=== PATIENT | female | born 2005 | race Caucasian/White ===

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

== ENCOUNTER 2024-06-24 21:36 | Emergency (ER) | payer BC ==
--- NOTE | 2024-06-24 21:52 | ED ---
Abdominal Pain HPI <Radha Ireland - Last Filed: 06/24/24 21:50> <Ale Chapman - Last Filed: 06/25/24 03:12> - General Stated Complaint: R Side Abd Pain Time Seen by Provider: 06/24/24 21:50 - History of Present Illness Initial Comments: Quick -83-ungp- female presenting for right lower quadrant abdominal pain x 2 hours. States the pain began suddenly and describes pain as though she is being stabbed with a knife. States the pain does radiate into the right flank. The pain did begin after a meal. She has never had this pain before. Denies fever, chills, vomiting, or urinary symptoms. Denies history of abdominal surgeries. (Radha Ireland) 18-year-old female with chief complaint of right lower quadrant pain. Pain started about 2 hours ago. Pain began suddenly and is a sharp and stabbing pain. Pain was somewhat radiating to the buttock earlier. She denies any dysuria or hematuria. No fevers or chills. No vaginal bleeding or abnormal discharge. No nausea or vomiting. No history of abdominal surgeries. (Ale Chapman) - Related Data Previous Rx's Medication Instructions Recorded traMADol HCl [Ultram] 50 mg PO Q4HR PRN 3 Days #18 tab 12/24/22 Ketorolac [Toradol] 10 mg PO Q6HR PRN #12 tab 06/25/24 Allergies Allergy/AdvReac Type Severity Reaction Status Date / Time No Known Allergies Allergy Verified 12/24/22 07:39 Review of Systems ROS Other: All systems not noted in ROS Statement are negative. <Radha Ireland - Last Filed: 06/24/24 21:50> ROS Other: All systems not noted in ROS Statement are negative. <Ale Chapman - Last Filed: 06/25/24 03:12> ROS Statement: Those systems with pertinent positive or pertinent negative responses have been documented in the HPI. Past Medical History Additional Past Medical History / Comment(s): bulging discs L4-L5 Past Surgical History: Adenoidectomy, Tonsillectomy Additional Past Surgical History / Comment(s): [place] teeth removed, laminectomy/decompression L4-L5 12/24/22 - Past Family History Mother Family Medical History: Hyperlipidemia, Hypertension Additional Family Medical History / Comment(s): bulging discs/back surgery, bipolar <Radha Ireland - Last Filed: 06/24/24 21:50> General Exam <Radha Ireland - Last Filed: 06/24/24 21:50> Limitations: no limitations General appearance: alert, in no apparent distress Head exam: Present: atraumatic, normocephalic, normal inspection Eye exam: Present: normal appearance, EOMI Neck exam: Present: normal inspection. Absent: meningismus Respiratory exam: Present: normal lung sounds bilaterally. Absent: respiratory distress, wheezes, rales, rhonchi, stridor Cardiovascular Exam: Present: regular rate, normal rhythm, normal heart sounds. Absent: systolic murmur, diastolic murmur, rubs, gallop, clicks GI/Abdominal exam: Present: soft, tenderness (rlq). Absent: distended, guarding, rebound, rigid Neurological exam: Present: alert, oriented X3 Psychiatric exam: Present: normal affect, normal mood Skin exam: Present: warm, dry <Ale Chapman - Last Filed: 06/25/24 03:12> - General Exam Comments Initial Comments: Visual Physical Exam General: Well-appearing, nontoxic, no acute distress. Head: Normocephalic, atraumatic Eyes: PERRLA, EOMI ENT: Airway patent Chest: Nonlabored breathing Skin: No visual rash, normal skin tone Neuro: Alert and oriented 3 Musculoskeletal: No gross abnormalities (Radha Ireland) Course Vital Signs 06/24/24 21:52 Temperature 98.3 F Pulse Rate 87 Respiratory 17 Rate Blood Pressure 138/81 O2 Sat by Pulse 99 Oximetry Medical Decision Making <Radha Ireland - Last Filed: 06/24/24 21:50> - Lab Data Result diagrams: 06/24/24 22:29 06/24/24 22:29 <Ale Chapman - Last Filed: 06/25/24 03:12> - Medical Decision Making I completed the quick note portion of this chart signed to Radha Ireland PA-C (Radha Ireland) Was pt. sent in by a medical professional or institution (, PA, WOOD DRILLING MACHINE OPERATOR, urgent care, hospital, or skilled nursing...) When possible be specific @ -No Did you speak to anyone other than the patient for history (EMS, parent, family, police, friend...)? What history was obtained from this source @ -No Did you review nursing and triage notes (agree or disagree)? Why? @ -I reviewed and agree with nursing and triage notes Were old charts reviewed (outside hosp., previous admission, EMS record, old EKG, old radiological studies, urgent care reports/EKG's, skilled nursing records)? Report findings @ -No old charts were reviewed Differential Diagnosis (chest pain, altered mental status, abdominal pain women, abdominal pain men, vaginal bleeding, weakness, fever, dyspnea, syncope, hea dache, dizziness, GI bleed, back pain, seizure, CVA, palpatations, mental health, musculoskeletal)? @ -MDM Differential Abdominal Pain Women: Appendicitis, Cholecystitis, diverticulosis, ischemic bowel, pancreatitis, hepatitis, UTI, gastroenteritis, AAA, incarcerated hernia, bowel obstruction, constipation, inflammatory bowel, hepatitis, peptic ulcer disease, splenic infarction, perforated viscus, vulvitis, ovarian torsion, PID, kidney stone, placenta abruption... This is not meant to be an all-inclusive list EKG interpreted by me (3pts min.). @ -As above X-rays interpreted by me (1pt min.). @ -None done CT interpreted by me (1pt min.). @ -CT shows no evidence for acute appendicitis. No suspicious acute finding seen to account for patient's symptoms. U/S interpreted by me (1pt. min.). @ -Appendix ultrasound shows nonvisualized normal or abnormal appendix Transvaginal ultrasound is unremarkable What testing was considered but not performed or refused? (CT, X-rays, U/S, labs)? Why? @ -None What meds were considered but not given or refused? Why? @ -None Did you discuss the management of the patient with other professionals (professionals i.e. , PA, WOOD DRILLING MACHINE OPERATOR, lab, RT, psych nurse, socially responsible investment adviser, spot checker, teacher, environmental compliance officer, complex case manager)? Give summary @ -No Was smoking cessation discussed for >3mins.? @ -No Was critical care preformed (if so, how long)? @ -No Were there social determinants of health that impacted care today? How? (Homelessness, low income, unemployed, alcoholism, drug addiction, transportation, low edu. Level, literacy, decrease access to med. care, intermediate, rehab)? @ -No Was there de-escalation of care discussed even if they declined (Discuss DNR or withdrawal of care, Hospice)? DNR status @ -No What co-morbidities impacted this encounter? (DM, HTN, Smoking, COPD, CAD, Cancer, CVA, ARF, Chemo, Hep., AIDS, mental health diagnosis, sleep apnea, morbid obesity)? @ -None Was patient admitted / discharged? Hospital course, mention meds given and route, prescriptions, significant lab abnormalities, going to OR and other pertinent info. @ -18-year-old female presenting with chief complaint of right lower quadrant pain that started earlier today. Workup was initiated by triage. No leukocytosis or anemia. CMP requires no action and urine shows no infectious process or bleeding. Negative hCG. Appendix ultrasound was obtained which does not visualize the appendix well. CT shows no acute process. Patient was having continued pain and ultrasound was obtained to rule out ovarian torsion, unremarkable transvaginal ultrasound. Patient reports improvement in her pain after morphine and Toradol. She is educated on today's findings and treatment plan. Discharged. Follow-up with PCP. Report back to ER with any new or worsening symptoms. Discussed return parameters and answered all questions. Patient conveyed verbal understanding and agreed to the plan. I discussed this case in detail with my attending Dr. David Undiagnosed new problem with uncertain prognosis? @ -No Drug Therapy requiring intensive monitoring for toxicity (Heparin, Nitro, Insulin, Cardizem)? @ -No Were any procedures done? @ -No Diagnosis/symptom? @ -Abdominal pain Acute, or Chronic, or Acute on Chronic? @ -Acute Uncomplicated (without systemic symptoms) or Complicated (systemic symptoms)? @ -Uncomplicated Side effects of treatment? @ -No Exacerbation, Progression, or Severe Exacerbation? @ -No Poses a threat to life or bodily function? How? (Chest pain, [place], [place], pneumonia, PE, COPD, DKA, ARF, appy, cholecystitis, CVA, Diverticulitis, Homicidal, Suicidal, threat to staff... and all critical care pts) @ -Unlikely (Ale Chapman) - Lab Data Lab Results 06/24/24 06/24/24 06/24/24 Range/Units 21:56 21:56 22:29 WBC 9.0 (4.0-11.0) k/uL RBC 4.60 (3.80-5.40) m/uL Hgb 13.9 (11.4-16.0) gm/dL Hct 42.1 (34.0-46.0) % MCV 91.5 (80.0-100.0) fL MCH 30.2 (25.0-35.0) pg MCHC 33.0 (31.0-37.0) g/dL RDW 12.2 (11.5-15.5) % Plt Count 308 (150-450) k/uL MPV 8.2 Neutrophils % 47 % Lymphocytes % 43 % Monocytes % 6 % Eosinophils % 2 % Basophils % 1 % Neutrophils # 4.2 (1.3-7.7) k/uL Lymphocytes # 3.8 (1.0-4.8) k/uL Monocytes # 0.5 (0-1.0) k/uL Eosinophils # 0.2 (0-0.7) k/uL Basophils # 0.1 (0-0.2) k/uL Sodium (137-145) mmol/L Potassium (3.5-5.1) mmol/L Chloride (98-107) mmol/L Carbon Dioxide (22-30) mmol/L Anion Gap mmol/L BUN (7-17) mg/dL Creatinine (0.52-1.04) mg/dL Est GFR (CKD-EPI)AfAm (>60 ml/min/1.73 sqM) Est GFR (CKD-EPI)NonAf (>60 ml/min/1.73 sqM) Glucose (74-99) mg/dL Plasma Lactic Acid Long (0.7-2.0) mmol/L Calcium (8.4-10.2) mg/dL Total Bilirubin (0.2-1.3) mg/dL AST (14-36) U/L ALT (4-34) U/L Alkaline Phosphatase (38-126) U/L Total Protein (6.3-8.2) g/dL Albumin (3.5-5.0) g/dL Urine Color Colorless Urine Appearance Clear (Clear) Urine pH 6.0 (5.0-8.0) Ur Specific [place] 1.018 (1.001-1.035) Urine Protein Negative (Negative) Urine Glucose (UA) Negative (Negative) Urine Ketones Negative (Negative) Urine Blood Negative (Negative) Urine Nitrite Negative (Negative) Urine Bilirubin Negative (Negative) Urine Urobilinogen <2.0 (<2.0) mg/dL Ur Leukocyte Esterase Negative (Negative) Urine HCG, Qual Not Detected (Not Detectd) 06/24/24 06/24/24 Range/Units 22:29 22:29 WBC (4.0-11.0) k/uL RBC (3.80-5.40) m/uL Hgb (11.4-16.0) gm/dL Hct (34.0-46.0) % MCV (80.0-100.0) fL MCH (25.0-35.0) pg MCHC (31.0-37.0) g/dL RDW (11.5-15.5) % Plt Count (150-450) k/uL MPV Neutrophils % % Lymphocytes % % Monocytes % % Eosinophils % % Basophils % % Neutrophils # (1.3-7.7) k/uL Lymphocytes # (1.0-4.8) k/uL Monocytes # (0-1.0) k/uL Eosinophils # (0-0.7) k/uL Basophils # (0-0.2) k/uL Sodium 140 (137-145) mmol/L Potassium 3.8 (3.5-5.1) mmol/L Chloride 108 H (98-107) mmol/L Carbon Dioxide 24 (22-30) mmol/L Anion Gap 8 mmol/L BUN 10 (7-17) mg/dL Creatinine 0.59 (0.52-1.04) mg/dL Est GFR (CKD-EPI)AfAm >90 (>60 ml/min/1.73 sqM) Est GFR (CKD-EPI)NonAf >90 (>60 ml/min/1.73 sqM) Glucose 123 H (74-99) mg/dL Plasma Lactic Acid Long 0.9 (0.7-2.0) mmol/L Calcium 9.5 (8.4-10.2) mg/dL Total Bilirubin 0.5 (0.2-1.3) mg/dL AST 26 (14-36) U/L ALT 18 (4-34) U/L Alkaline Phosphatase 52 (38-126) U/L Total Protein 7.1 (6.3-8.2) g/dL Albumin 4.5 (3.5-5.0) g/dL Urine Color Urine Appearance (Clear) Urine pH (5.0-8.0) Ur Specific [place] (1.001-1.035) Urine Protein (Negative) Urine Glucose (UA) (Negative) Urine Ketones (Negative) Urine Blood (Negative) Urine Nitrite (Negative) Urine Bilirubin (Negative) Urine Urobilinogen (<2.0) mg/dL Ur Leukocyte Esterase (Negative) Urine HCG, Qual (Not Detectd) Disposition <Radha Ireland - Last Filed: 06/24/24 21:50> Is patient prescribed a controlled substance at d/c from ED?: No Time of Disposition: 02:38 <Ale Chapman - Last Filed: 06/25/24 03:12> Clinical Impression: Abdominal pain Disposition: HOME SELF-CARE Condition: Good Instructions (If sedation given, give patient instructions): Abdominal Pain (ED) Additional Instructions: Follow-up with your PCP. Report back to ER with any new or worsening symptoms. Do not combine Toradol with other NSAIDs such as ibuprofen or naproxen. Prescriptions: Ketorolac [Toradol] 10 mg PO Q6HR PRN #12 tab PRN Reason: Pain Referrals: Laura Olvera PAC [REFERRING] - 1-2 days
[2024-06-24 21:55] VITALS: TEMP 98.3
--- NOTE | 2024-06-24 22:56 | US ---
EXAMINATION TYPE: US abdomen APPY DATE OF EXAM: 06/24/2024 COMPARISON: NONE CLINICAL INDICATION: Female, 18 years old with history of RLQ abd pain; RLQ pain TECHNIQUE: Multiple sonographic images of the right lower quadrant were obtained with graded compress ion with grayscale and color Doppler imaging. FINDINGS: APPENDIX Is the appendix seen in its entirety from the proximal cecum to distal end: no Is the appendix compressible: n/a Does the appendix wall appear hypervascular: no Is an appendicolith present: no Is there inflammatory changes or free fluid present: no SPECIAL EVENTS DIRECTOR NOTES: Appendix is not well visualized due to bowel gas. IMPRESSION: Nonvisualized normal or abnormal appendix. [facility], , 06/24/2024 10:54 PM
[2024-06-24 23:16] LABS: Basophils # (A) 0.1 k/uL (0-0.2); Basophils % (A) 1 %; Eosinophils # (A) 0.2 k/uL (0-0.7); Eosinophils % (A) 2 %; HCT 42.1 % (34.0-46.0); HGB 13.9 gm/dL (11.4-16.0); Lymphocytes # (A) 3.8 k/uL (1.0-4.8); Lymphocytes % (A) 43 %; MCH 30.2 pg (25.0-35.0); MCV 91.5 fL (80.0-100.0); Mean Platelet Volume 8.2; Monocytes # (A) 0.5 k/uL (0-1.0); Monocytes % (A) 6 %; Neutrophils # (A) 4.2 k/uL (1.3-7.7); Neutrophils % (A) 47 %; Platelet Count 308 k/uL (150-450); RDW 12.2 % (11.5-15.5)
[2024-06-24 23:19] LABS: Appearance,Urine Clear (Clear); Bilirubin,Urine Negative (Negative); Blood,Urine Negative (Negative); Color,Urine Colorless; Glucose,Urine (UA) Negative (Negative); Ketones,Urine Negative (Negative); Leukocyte Esterase,Urine Negative (Negative); Nitrite,Urine Negative (Negative); Protein,Urine Negative (Negative); Specific Gravity,Urine 1.018 (1.001-1.035); Urobilinogen,Urine <2.0 mg/dL (<2.0)
[2024-06-24 23:34] LABS: ALT 18 U/L (4-34); AST 26 U/L (14-36); African American GFR (CKD) >90 (>60 ml/min/1.73 sqM); Albumin 4.5 g/dL (3.5-5.0); Alkaline Phosphatase 52 U/L (38-126); Anion Gap 8 mmol/L; Blood Urea Nitrogen 10 mg/dL (7-17); Calcium 9.5 mg/dL (8.4-10.2); Carbon Dioxide 24 mmol/L (22-30); Chloride 108 mmol/L (98-107); Glucose 123 mg/dL (74-99); Non-African American GFR(CKD) >90 (>60 ml/min/1.73 sqM); Potassium 3.8 mmol/L (3.5-5.1); Sodium 140 mmol/L (137-145); Total Bilirubin 0.5 mg/dL (0.2-1.3); Total Protein 7.1 g/dL (6.3-8.2)
[2024-06-25] MEDS: KETOROLAC 15 MG/ML 1 ML VIAL IVP STA (01:07)
[2024-06-25] MEDS: MORPHINE SULFATE 2 MG/ML SYRINGE IVP STA (01:09)
--- NOTE | 2024-06-25 01:15 | CT ---
EXAMINATION TYPE: CT abdomen pelvis w con DATE OF EXAM: 06/25/2024 HISTORY: Pt arrives in [facility] today for RLQ pain for the past few days. Pt denies nausea, vomiting or di arrhea. H/O L4-5 laminectomy/decompression. CT DLP: 671.8mGycm Automated Exposure Control for Dose Reduction was Utilized. CONTRAST: CT scan of the abdomen and pelvis is performed with IV Contrast, patient injected with 100 mL of Isov ue 300. COMPARISON: None. FINDINGS: LUNG BASES: No significant abnormality is appreciated. LIVER/GB: Contracted gallbladder is seen. PANCREAS: No significant abnormality is seen. SPLEEN: Small splenule in splenic hilum axial image 18 incidentally noted. ADRENALS: No significant abnormality is seen. KIDNEYS: No significant abnormality is seen. BOWEL: Appendix within normal limits ascending from cecum coronal image 47 for reference. No abnormal small or large bowel dilatation. UTERUS/ADNEXA: Anteverted uterus projects to right of midline. LYMPH NODES: No greater than 1cm abdominal or pelvic lymph nodes are appreciated. OSSEOUS STRUCTURES: Posterior disc herniation L4-L5 level effaces the anterior thecal sac. OTHER: No significant additional abnormality is seen. IMPRESSION: No CT evidence for acute appendicitis. No suspicious acute findings seen to account for p atient's symptoms. [facility], , 06/25/2024 1:13 AM
--- NOTE | 2024-06-25 02:31 | US ---
EXAMINATION TYPE: US transvaginal DATE OF EXAM: 06/25/2024 COMPARISON: CT abdomen and pelvis earlier today CLINICAL INDICATION: Female, 18 years old with history of R pelvic pain; RLQ pain TECHNIQUE: Transvaginal (TV). FINDINGS: EXAM MEASUREMENTS: Uterus: 6.2 x 3.2 x 3.4 cm Endometrial Stripe: .7 cm Right Ovary: 2.1 x 1.6 x 1.3 cm Left Ovary: 2.0 x 1.7 x 1.6 cm 1. Uterus: Anteverted wnl 2. Endometrium: wnl 3. Right Ovary: wnl 4. Left Ovary: wnl Spectral, color and waveform doppler imaging shows good arterial and venous flow within the ovaries . 5. Bilateral Adnexa: wnl 6. Posterior cul-de-sac: wnl IMPRESSION: Unremarkable study. [facility], , 06/25/2024 2:29 AM
[2024-06-25 03:00] VITALS: BP 135/83; PULSE 86; RESP 18
== END 2024-06-25 03:00 | disposition home or self-care (01) ==
LOC: EC 21:36 → SUPCPDRO 21:36 → EC 06-25 03:00
DX: R10.31 Right lower quadrant pain (principal)
CPT/HCPCS: 36415; 74177; 76705; 76830; 80053; 81003; 81025; 83605; 85025; 93975; 96374; 96375; 99285